=== PATIENT | female | born 1970 ===

== ENCOUNTER 2023-10-08 09:37 | Outpatient (REF) | payer OTHER, SELFPAY ==
--- NOTE | ~2023-10-08 | XR_ITS ---
EXAMINATION: XR HAND, LEFT CLINICAL INFORMATION: Pain in left hand. COMPARISON: None available. TECHNIQUE: 2 views of the left hand. 2 views of the left thumb. FINDINGS: Bone mineralization is normal. Mild narrowing of the radiocarpal space. Mild degenerative changes in the IP joints. Mild degenerative changes with joint space narrowing and hypertrophic change in the first carpometacarpal and metacarpophalangeal joints. No displaced fracture of the thumb appreciated. XR/XR hand LT min 3V IMPRESSION: 1. Mild degenerative changes. 2. No displaced fracture. Recommend follow up imaging in 10-14 days if fracture is suspected.
== END 2023-10-08 09:38 | disposition home or self-care (01) ==
LOC: HO.HOSX 09:37
PROVIDERS: Visit Provider Orthopaedic Surgery
DX: M79.642 Pain in left hand (principal); M79.645 Pain in left finger(s)
CPT/HCPCS: 73130; 99202

== ENCOUNTER 2023-10-08 13:00 | Outpatient (AMB) | payer OTHER, SELFPAY ==
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
[2023-10-08 13:14] VITALS: BMI 30.9
== END 2023-10-08 14:17 | disposition home or self-care (01) ==
PROVIDERS: Visit Provider Orthopaedic Surgery
DX: M25.542 Pain in joints of left hand (principal); M79.645 Pain in left finger(s)
CPT/HCPCS: 99203

== ENCOUNTER 2023-11-13 11:26 | Outpatient (AMB) | payer OTHER, SELFPAY ==
[2023-11-13 11:46] VITALS: BMI 30.9
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
== END 2023-11-13 12:06 | disposition home or self-care (01) ==
PROVIDERS: Visit Provider Orthopaedic Surgery
DX: M25.542 Pain in joints of left hand (principal); M79.645 Pain in left finger(s); Z04.3 Encounter for examination and observation following other accident
CPT/HCPCS: 99213

== ENCOUNTER → 2023-11-13 11:26 | Outpatient (BNVA) | payer OTHER, SELFPAY | PROVIDERS: Visit Provider Orthopaedic Surgery | DX: M25.542 Pain in joints of left hand (principal); M79.645 Pain in left finger(s) | CPT/HCPCS: 99212 ==